=== PATIENT | female | born 1975 | race Caucasian/White ===

== ENCOUNTER 2024-07-16 16:13 | Inpatient (IN) | payer MEDICAID, SELFPAY ==
[2024-07-16 16:14] VITALS: BMI 30.9
--- NOTE | 2024-07-16 16:17 | EKG_ITS ---
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
[2024-07-16 16:32] VITALS: BP 151/89; PULSE 65; RESP 20; TEMP 36.9; O2SAT 98
--- NOTE | 2024-07-16 16:44 | PD.EDRME ---
Rapid Medical Screening Exam RME Arrival date/time: 07/16/24 16:13 48-year-old female presents emergency department complains of chest pain ongoing since Monday Chief Complaint: Chest Pain Time Seen by Provider: 07/16/24 16:26 Vital signs: Vital Signs Temperature 98.5 F 07/16/24 16:32 Pulse Rate 65 07/16/24 16:32 Respiratory Rate 20 07/16/24 16:32 Blood Pressure 151/89 H 07/16/24 16:32 Pulse Oximetry (%) 98 07/16/24 16:32 Oxygen Delivery Method Room Air 07/16/24 16:32
--- NOTE | 2024-07-16 16:45 | XR_ITS ---
Examination: PA lateral chest 2 views Technique: Upright AP lateral chest 2 views Exam date and time: July 16, 2024 1701 hrs. Indications: Chest pain today. Findings: Normal heart size No pneumonia or pulmonary edema The osseous structures are intact Impression: No active disease
[2024-07-16 17:00] LABS: Basophils # (Auto) 0.1 Thou/mm3 (0.0-0.2); Basophils % (Auto) 1 % (0-2.5); Eosinophils # (Auto) 0.2 Thou/mm3 (0.0-0.5); Eosinophils % (Auto) 2 % (0-10); Hematocrit 39.9 % (36.0-46.0); Hemoglobin 13.6 g/dL (12.0-16.0); Immature Granulocytes % (Auto) 0 % (0-0); Immature Granulocytes Auto 0.04 Thou/mm3 (0.00-0.00); Lymphocytes # (Auto) 2.2 Thou/mm3 (1.0-4.8); Lymphocytes % (Auto) 24 % (10-50); Mean Corpuscular HGB Conc 34.1 g/dl (31.0-37.0); Mean Corpuscular Hemoglobin 30.2 pg (25.0-35.0); Mean Corpuscular Volume 89 fL (80-100); Monocytes # (Auto) 0.8 Thou/mm3 (0.0-0.8); Monocytes % (Auto) 9 % (0-12); Neutrophils % (Auto) 65 % (37-80); Nucleated Red Blood Cell % 0 /100 WBC (0); Platelet Count 354 Thou/mm3 (140-440); RDW Standard Deviation 39.8 fL (36.4-46.3); White Blood Count 9.3 Thou/mm3 (3.6-11.0)
[2024-07-16 17:21] LABS: B-Type Natriuretic Peptide 31 pg/mL (0-100)
[2024-07-16 17:34] LABS: Alanine Aminotransferase 13 U/L (10-49); Albumin, Serum 4.7 gm/dL (3.5-5.0); Albumin/Globulin Ratio 1.4 (1.2-2.2); Alkaline Phosphatase 65 U/L (46-116); Anion Gap 7 (7-16); Aspartate Amino Transferase 14 U/L (0-34); BUN/Creatinine Ratio 13 Ratio (12-20); Bilirubin,Total 0.3 mg/dL (0.3-1.2); Blood Urea Nitrogen 10 mg/dL (9-23); Calcium 9.3 mg/dL (8.3-10.6); Calcium (Corrected) 9.3 mg/dL (8.5-10.1); Carbon Dioxide 23.9 mMol/L (20.0-31.0); Chloride 105 mMol/L (98-107); Creatinine (Component) 0.8 mg/dL (0.6-1.3); Estimated Creatinine Clearance 89.9 mL/min (>60); Globulin 3.3 gm/dL (2.3-3.5); Glucose 88 mg/dL (74-106); Lipase 51 U/L (12-53); Osmolality,Calculated 269 (275-295); Potassium 4.1 mMol/L (3.4-5.1); Sodium 136 mMol/L (136-145); Troponin I < 0.002 ng/mL (0.0-0.045); eGFR > 60 See Note
--- NOTE | 2024-07-16 20:22 | PD.EDCHEST ---
ED Chest Pain RME/HPI General Chief Complaint: Chest Pain Stated Complaint: MID CHEST PAIN RAD TO BACK Time Seen by Provider: 07/16/24 16:26 Source: patient Arrival date/time: 07/16/24 16:13 Mode of arrival: ambulatory Limitations: no limitations RME / HPI RME / HPI narrative: 07/16/24 16:13 48-year-old female presents emergency department complains of chest pain ongoing since Monday DR. TORIBIO MAIN ED EVALUATION: 48-year-old female with no significant past medical history coming in with radiating and squeezing chest pain to back. Since Monday. The pain is under her right breast area and it is squeezing in nature. Initially was intermittent and controlled with ibuprofen now pain has been constant for 48 hours and not improved with Motrin. No cough, runny nose, fever, history of cancer, no history of pulmonary embolism, no history recent travel, lower extremity swellings, and is not a smoker. Patient states that the pain is associated with food. Anything she eats makes the pain worse. No hypertension, history of hysterectomy, non-smoker. Related Data Allergies Allergy/AdvReac Type Severity Reaction Status Date / Time red dye AdvReac Unknown VOMITTING Verified 07/16/24 16:16 Review of Systems Review of Systems Systems Reviewed: All systems reviewed, normal except as documented Narrative Review of Systems: GEN: No fever, no chills, no weight loss EYES: No discharge, no visual changes, no pain HEENT: No ear pain, no congestion, no sore throat PULM: No shortness of breath, no cough, no congestion CV: + chest pain (under her right breast area see HPI), no dyspnea on exertion, no palpitations GI: No nausea, no vomiting, no diarrhea, no pain, no constipation : No frequency, no urgency and no dysuria MUSC/SKEL: No joint pain, + back pain SKIN: No rash PSYCH: No hallucinations, no depression HEME/LYMPH: No easy bleeding or bruising tendencies NEURO: No weakness, no headache Past Medical History Past Medical History CARDIAC: Negative Congestive Heart Failure RESPIRATORY: Negative Chronic Obstructive Pulmonary Disease (COPD) or Asthma GENITOURINARY: Negative Renal Disease ENDOCRINE: Negative Diabetes Mellitus Type 1 or Diabetes Mellitus Type 2 HEMATOLOGIC: Negative Sickle Cell Disease Social History SMOKING STATUS: Never smoker ED Exam Narrative Physical exam: Mild distress General Limitations: Present no limitations General appearance: Present alert and in no apparent distress Head Head exam: Present atraumatic Eye Eye exam: Present normal appearance; Absent scleral icterus ENT ENT exam: Present normal exam, normal oropharynx and mucous membranes dry Neck Neck exam: Present normal inspection, full ROM and trachea midline Chest Chest inspection: Present normal inspection and symmetric chest wall rise Respiratory Respiratory exam: Present normal lung sounds bilaterally; Absent wheezes Cardiovascular Cardiovascular exam: Present normal rhythm and normal heart sounds Abdominal Exam Abdominal exam: Present soft and normal bowel sounds Extremities Exam Extremities exam: Present normal inspection and full ROM Back Exam Back exam: Present normal inspection, full ROM and tenderness (Lipoma on her left upper back.); Absent CVA tenderness (R) or CVA tenderness (L) Neurological Exam Neurological exam: Present alert, oriented X3 and normal gait Psychiatric Psychiatric exam: Present normal affect and normal mood Skin Skin exam: Present warm, dry, intact and normal color Course Course Course Narrative: Reevaluation shows no Jenkins sign. Abdomen is soft. Patient has no fever here. Tolerated p.o. No evidence of acute cholecystitis. Quality Measures none Orders Category Date Time Status CT Screening NOW Care 07/16/24 20:39 Active EKG (ED ONLY) *Do not use* NOW Care 07/16/24 16:17 Completed IV [Insert IV] STAT Care 07/16/24 20:40 Active MRI Screening NOW Care 07/17/24 01:15 Completed MRI Screening NOW Care 07/17/24 01:[address] angio chest Stat Exams 07/16/24 20:39 Completed EKG (ED Only) Stat Exams 07/16/24 16:17 Draft MR MRCP Stat Exams 07/17/24 Ordered US gall bladder Stat Exams 07/16/24 20:40 Completed XR chest 2V Stat Exams 07/16/24 16:45 Completed BNP [B-Type Natriuretic Peptide] Stat Lab 07/16/24 16:52 Completed CBC Stat Lab 07/16/24 16:52 Completed Comprehensive Metabolic Panel Stat Lab 07/16/24 16:52 Completed HCG,Qualitative Serum Stat Lab 07/16/24 16:52 Completed Lipase Stat Lab 07/16/24 16:52 Completed Troponin I Stat Lab 07/16/24 16:52 Completed Ketorolac Inj [Toradol Inj] Med 07/16/24 20:40 Discontinued 30 mg IVP X1 ONE Ketorolac Inj [Toradol Inj] Med 07/17/24 01:15 Discontinued 30 mg IVP X1 ONE Morphine Inj Med 07/16/24 20:40 Discontinued 4 mg IVP X1 ONE Morphine Inj Med 07/17/24 01:15 Discontinued 4 mg IVP X1 ONE Ondansetron Inj [Zofran Inj] Med 07/16/24 20:40 Discontinued 4 mg IV X1 ONE Sodium Chloride 0.9% 1000 ml [Ns] 1,000 ml Med 07/16/24 20:40 Discontinued IV 999 mls/hr Vital Signs Vital signs: Vital Signs Temperature 98.5 F 07/16/24 16:32 Pulse Rate 65 07/16/24 16:32 Respiratory Rate 20 07/16/24 16:32 Blood Pressure 151/89 H 07/16/24 16:32 Pulse Oximetry (%) 98 07/16/24 16:32 Oxygen Delivery Method Room Air 07/16/24 16:32 Procedures -ED EKG Interpretation #1: Date of EK07/16/24 Time of EK:30 Rate: 67 Additional EKG comment: No ST elevations or depressions. Left atrial enlargement. Incomplete right bundle branch block. QTc 419. Left bundle branch block. Chest Pain MDM Narrative MDM Narrative:: I, Vera Santana am scribing for and in the presence of Dr. Toribio. 0600 : Care signed out to [facility] provider. Past medical, surgical, social and family history reviewed. Vitals and home medications reviewed. Results and treatment plan discussed. They will assume the care of the patient at this time and will follow the patient, pending MRCP. Patient data External records reviewed:: None (no previous visits) Clinical information provided by:: patient Social determinants that could affect healthcare access:: none Patient has the following chronic illnesses:: Denies any PMHx, surgeries, daily medications, or known allergies. No hypertension, history of hysterectomy, non-smoker. How is presenting disease/condition affected by chronic disease/condition?: no chronic disease Evaluation data The following diagnostics were reviewed and interpreted by me:: lab results, radiology exam(s) and EKG tracing(s) Lab and/or radiology exams considered but not ordered:: none Interpretation Summary: Procedure(s): XR chest 2V Accession Number(s): [id number] cc: Tom (PAPER PRODUCTS MACHINE OPERATOR),Dylon HAMILTON; Rigoberto Reyez MD; NO PRIMARY/FAMILY,PHYSICIAN~ Examination: PA lateral chest 2 views Technique: Upright AP lateral chest 2 views Exam date and time: July 16, 2024 1701 hrs. Indications: Chest pain today. Findings: Normal heart size No pneumonia or pulmonary edema The osseous structures are intact Impression: No active disease Dictated By: Rigoberto Reyez MD Procedure(s): US gall bladder Accession Number(s): [id number] cc: Rigoberto Reyez MD; NO PRIMARY/FAMILY,PHYSICIAN; Lauren Toribio MD~ Examination: Abdomen sonogram, Limited Date and time of exam: July 16, 2024 2124 hrs. Indications: Onset right upper abdominal pain beginning 6 days ago Technique: Real-time belcher scale transabdominal sonographic images of the upper abdomen obtained. Findings: Multiple small gallstones Gallbladder wall 0.3 cm no edema Common bile duct 0.4 cm Pancreatic head 2.9 cm Liver 13 cm fatty liver Normal hepatopedal portal venous flow Patent IVC Impression: Cholelithiasis, negative for cholecystitis Dictated By: Rigoberto Reyez MD Medications / Prescriptions Medications or Prescriptions considered but not ordered:: none Medication administrations:: Medication Administration History Discontinued Medications Sodium Chloride (Ns) 1,000 mls @ 999 mls/hr IV .Q1H1M ONE Stop: 07/16/24 21:40 Last Infusion: 07/16/24 22:15 Dose: Infused Documented By: Admin: 07/16/24 21:19 Dose: 999 mls/hr Documented By: TC Ketorolac Tromethamine (Ketorolac Inj 30 Mg/Ml Vial) 30 mg IVP X1 ONE Stop: 07/16/24 20:41 Last Admin: 07/16/24 21:13 Dose: 30 mg Documented By: TC Ketorolac Tromethamine (Ketorolac Inj 30 Mg/Ml Vial) 30 mg IVP X1 ONE Stop: 07/17/24 01:16 Last Admin: 07/17/24 01:21 Dose: Not Given Documented By: TC Non-Admin Reason: Discontinued Morphine Sulfate (Morphine Sulf Inj 10 Mg/Ml Vial) 4 mg IVP X1 ONE Stop: 07/16/24 20:41 Last Admin: 07/16/24 21:14 Dose: 4 mg Documented By: TC Morphine Sulfate (Morphine Sulf Inj 10 Mg/Ml Vial) 4 mg IVP X1 ONE Stop: 07/17/24 01:16 Last Admin: 07/17/24 01:23 Dose: 4 mg Documented By: TC Ondansetron HCl (Ondansetron Inj 2 Mg/Ml Inj 2 Ml) 4 mg IV X1 ONE; Protocol Stop: 07/16/24 20:41 Last Admin: 07/16/24 21:13 Dose: 4 mg Documented By: TC see above Consultations Consultation(s) initiated? (list below): No Diagnosis Chest Pain Differential Diagnosis: other (pulmonary embolism, gallbladder disease, common bile duct stone, pulmonary embolism, coronary disease, will send second troponin) Most likely diagnosis given after review of the tests above:: Cholethiasis Admission Indicated Admission indicated?: not indicated Explain why admission is indicated or not indicated:: Sign out pending MRCP Admission Request Was there a request for admission?: No Disposition Plan Disposition Plan: other (specify) (sign out) Discharge Plan Plan Patient Disposition: HOME (Self Care) Patient condition on transfer: Stable Prescriptions/Referrals Referrals: No Primary/Family,Physician [Primary Care Provider] - In 1 week Winsome Newby MD [Physician] - In 1 week (Get referral for gallstones.) Problem List Clinical Impression: Cholelithiasis Patient/Caregiver Discharge Instructions Education Materials: What Are Gallstones, Treating Gallstones Additional Instructions: Stop eating greasy and fatty foods especially over the next few holidays will you will end up back in the emergency department with an infection of your gallbladder. Right now you only have gallstones. You can follow-up with your primary care to get a referral to the surgeons office to see if they want to take your gallbladder out. That number has been given to you above. If you do not have a primary care physician you can follow-up at the [facility] located at [facility] [address], [place] the phone number is [phone]. Print Language: Grenadian Stand Alone Forms: Jesscia Award Info., Patient Portal Info Letter
--- NOTE | 2024-07-16 20:39 | XR_ITS ---
Examination: CTA chest with intravenous contrast 2-D reconstructions 3-D reconstructions, vascular Date and time of exam: July 16, 2024 11:35 PM Indications: Chest pain beginning 5 days ago CTDI: vol (mGy) 16.6 DLP: (mGycm) 337 Technique: Multiple axial sections of the thorax have been obtained. 3 mm slice thickness, from below the hemidiaphragms to above the apices of the lungs. Mediastinal and lung density settings have been obtained. 2-D sagittal and coronal reconstructions. 3-D angiographic renderings, 3-D volume renderings, 3D post processing, vascular maximum intensity projections obtained. Contrast administered is 100 cc Isovue-370 intravenous. Low dose protocols were performed. One or more of the following dose reduction techniques were used; automated exposure control, adjustment of the mA and/or KV according to patient size, use of iterative reconstruction technique. Findings: No thoracic aortic aneurysm dilatation or dissection Pulmonary artery segments are not enlarged No paratracheal tracheobronchial or bronchopulmonary adenopathy No lobar pneumonia or pulmonary edema or pleural disease 6 mm medial right lobe liver cyst No biliary tract dilatation Gallstones No dilated pancreatic duct No adrenal mass Impression: Negative for pulmonary artery emboli No pneumonia, pulmonary edema or pleural disease Cholelithiasis, negative for cholecystitis
--- NOTE | 2024-07-16 20:40 | XR_ITS ---
Examination: Abdomen sonogram, Limited Date and time of exam: July 16, 2024 2124 hrs. Indications: Onset right upper abdominal pain beginning 6 days ago Technique: Real-time belcher scale transabdominal sonographic images of the upper abdomen obtained. Findings: Multiple small gallstones Gallbladder wall 0.3 cm no edema Common bile duct 0.4 cm Pancreatic head 2.9 cm Liver 13 cm fatty liver Normal hepatopedal portal venous flow Patent IVC Impression: Cholelithiasis, negative for cholecystitis
[2024-07-16] MEDS: KETOROLAC INJ 30 MG/ML VIAL IVP (21:13)
[2024-07-16] MEDS: ONDANSETRON INJ 2 MG/ML INJ 2 ML 4 MG IV (21:13)
[2024-07-16] MEDS: MORPHINE SULF INJ 10 MG/ML VIAL 4 MG IVP (21:14)
[2024-07-16] MEDS: SODIUM CHLORIDE 0.9% 1000 ML 1,000 ML 999 ML IV (21:19)
[2024-07-16 21:23] VITALS: BP 161/86; PULSE 74; RESP 17; TEMP 36.6; O2SAT 99
[2024-07-16 23:02] LABS: HCG,Qualitative Serum Negative
[2024-07-17] VITALS (18 sets, daily range): BP systolic 91–136; BP diastolic 48–88; PULSE 51–90; RESP 12–20; TEMP 36.6–37.2; O2SAT 95–99
--- NOTE | 2024-07-17 | XR_ITS ---
MRI abdomen, without contrast. MRCP Date and time of exam: July 17, 2024 0840 hours INDICATIONS: Constant right upper abdominal pain beginning last week Technique: Multiple axial and coronal images of the abdomen have been obtained with the Siemens 1.5T MRI scanner. Images obtained included T1 weighted transverse images, T2-weighted transverse images, T2-weighted transverse images fat-suppressed, T2 weighted haste fat suppressed transverse images, T1 weighted images, in and out of phase images, T2-weighted coronal images, breath hold, T2 weighted haze coronal images as well as T2 weighted coronal thick slab images, MRCP. Findings: No focal liver lesions Multiple gallstones Gallbladder wall is thickened at the fundus 11 mm 2 mm stone in the common hepatic duct coronal image 13 No pancreatic edema No splenomegaly No ascites No hydronephrosis IMPRESSION: Acute calculus cholecystitis 2 mm stone in the common hepatic duct, coronal image 13, consider ERCP follow-up
[2024-07-17] MEDS: MORPHINE SULF INJ 10 MG/ML VIAL 4 MG IVP ×2 (01:23→18:24)
[2024-07-17] MEDS: LORazepam 2 MG/ML VIAL IVP (04:53)
--- NOTE | 2024-07-17 07:14 | PD.EDADDENDU ---
Emergency Room Addendum <Megha Giron - Last Filed: 07/17/24 16:29> Addendum Narrative: 0600: Care assumed from Dr. Toribio, the previous shift emergency physician. Past medical, surgical, social and family history reviewed. Vitals and home medications reviewed. I will assume the care of the patient at this time, pending MRCP and final disposition. Please refer to the emergency department record for history and examination from initial visit.? Nursing notes reviewed by me. Vital signs reviewed by me. [place] medical records reviewed by me. 0702: on reassessment patient has epigastric and right upper quadrant tenderness. Reports 5-7 days of unrelenting epigastric pain. Patient received 2mg of Ativan at 04:53 am. 1205: I discussed todays MRCP results with both the patient and at bedside. Discussed the plan to transfer the patient which they both understand. Patient is requesting pain medication. Patient was having more pain was given some Dilaudid appears to be comfortable. 1250: I spoke with transfer nurse at [facility]. Discussed patients PMHx, HPI, ED course, exam findings, labs, and radiology results. They attempted to reach GI specialist Dr. Gonzales. However did not answer. State they will present the case to GI. 1256: I spoke with transfer nurse at [facility]. Discussed patients PMHx, HPI, ED course, exam findings, labs, and radiology results. State they will present case to their GI team. [facility] called back about the transfer and took some information are still waiting for callback from them at 1359 hrs. Same thing for [facility] as mentioned above still no callback at 1359 hrs. 1420: [facility] has declined patient for transfer. 1615: I spoke with GI Dr. Abdi. Discussed patients PMHx, HPI, ED course, exam findings, labs, and radiology results. States he will consult with Dr. Strauss. 1622: Dr. Abdi reports Dr. Strauss is unavailable however Dr. Abdi agrees to consult. 1625: I spoke with surgeon Dr. Colunga. Discussed patients PMHx, HPI, ED course, exam findings, labs, and radiology results. He agrees to consult. RADIOLOGY Ordering Physician: Lauren Toribio MD Date of Service: 07/17/24 Procedure(s): MR MRCP Accession Number(s): [id number] cc: Rigoberto Reyez MD; NO PRIMARY/FAMILY,PHYSICIAN; Lauren Toribio MD~ MRI abdomen, without contrast. MRCP Date and time of exam: July 17, 2024 0840 hours INDICATIONS: Constant right upper abdominal pain beginning last week Technique: Multiple axial and coronal images of the abdomen have been obtained with the Siemens 1.5T MRI scanner. Images obtained included T1 weighted transverse images, T2-weighted transverse images, T2-weighted transverse images fat-suppressed, T2 weighted haste fat suppressed transverse images, T1 weighted images, in and out of phase images, T2-weighted coronal images, breath hold, T2 weighted haze coronal images as well as T2 weighted coronal thick slab images, MRCP. Findings: No focal liver lesions Multiple gallstones Gallbladder wall is thickened at the fundus 11 mm 2 mm stone in the common hepatic duct coronal image 13 No pancreatic edema No splenomegaly No ascites No hydronephrosis IMPRESSION: Acute calculus cholecystitis 2 mm stone in the common hepatic duct, coronal image 13, consider ERCP follow-up Dictated By: Rigoberto Reyez MD Signed By: <Electronically signed by Rigoberto Reyez MD in OV> 07/17/24 1006 <Cesar Batista MD - Last Filed: 07/17/24 16:31> Addendum Narrative: 0600: Care assumed from Dr. Toribio, the previous shift emergency physician. Past medical, surgical, social and family history reviewed. Vitals and home medications reviewed. I will assume the care of the patient at this time, pending MRCP and final disposition. Please refer to the emergency department record for history and examination from initial visit.? Nursing notes reviewed by me. Vital signs reviewed by me. [facility] medical records reviewed by me. 0702: on reassessment patient has epigastric and right upper quadrant tenderness. Reports 5-7 days of unrelenting epigastric pain. Patient received 2mg of Ativan at 04:53 am. 1205: I discussed todays MRCP results with both the patient and at bedside. Discussed the plan to transfer the patient which they both understand. Patient is requesting pain medication. Patient was having more pain was given some Dilaudid appears to be comfortable. 1250: I spoke with transfer nurse at [facility]. Discussed patients PMHx, HPI, ED course, exam findings, labs, and radiology results. They attempted to reach GI specialist Dr. Gonzales. However did not answer. State they will present the case to GI. 1256: I spoke with transfer nurse at [facility]. Discussed patients PMHx, HPI, ED course, exam findings, labs, and radiology results. State they will present case to their GI team. [facility] called back about the transfer and took some information are still waiting for callback from them at 1359 hrs. Same thing for [facility] as mentioned above still no callback at 1359 hrs. 1420: [facility] has declined patient for transfer. 1615: I spoke with GI Dr. Abdi. Discussed patients PMHx, HPI, ED course, exam findings, labs, and radiology results. States he will consult with Dr. Strauss. 1622: Dr. Abdi reports Dr. Strauss is unavailable however Dr. Abdi agrees to consult. 1625: I spoke with surgeon Dr. Colunga. Discussed patients PMHx, HPI, ED course, exam findings, labs, and radiology results. He agrees to consult. jmk> as mentioned above patient presents with intractable right upper quadrant pain with gallstones and MRCP that reveals acute Hina cystitis and a common hepatic stone which is 2 mm and evidently the previous 2 control equipment electrician who did not speak to me on the phone we attempted to transfer did not feel this patient need to be transferred just be admitted for gallbladder removal. So we contacted Dr. Colunga our surgeon on-call discussed the case at great length and he agreed to take the patient and admission understanding there is a 2 mm common hepatic duct stone. Dr. Colunga said he could admit this patient out right since there is no other medical problems noted at this time. Note we spent over an hour time with transfers and calls and discussions to get this patient transferred and unfortunately could not speak to any of the control equipment electrician that the other locations and we have nobody to do ERCP here as our 1 and only control equipment electrician that does ERCPs is on vacation. Fortunately Dr. Abdi was available to help us and will be available in consultation if needed. RADIOLOGY Ordering Physician: Lauren Toribio MD Date of Service: 07/17/24 Procedure(s): MR MRCP Accession Number(s): [id number] cc: Rigoberto Reyez MD; NO PRIMARY/FAMILY,PHYSICIAN; Lauren Toribio MD~ MRI abdomen, without contrast. MRCP Date and time of exam: July 17, 2024 0840 hours INDICATIONS: Constant right upper abdominal pain beginning last week Technique: Multiple axial and coronal images of the abdomen have been obtained with the Siemens 1.5T MRI scanner. Images obtained included T1 weighted transverse images, T2-weighted transverse images, T2-weighted transverse images fat-suppressed, T2 weighted haste fat suppressed transverse images, T1 weighted images, in and out of phase images, T2-weighted coronal images, breath hold, T2 weighted haze coronal images as well as T2 weighted coronal thick slab images, MRCP. Findings: No focal liver lesions Multiple gallstones Gallbladder wall is thickened at the fundus 11 mm 2 mm stone in the common hepatic duct coronal image 13 No pancreatic edema No splenomegaly No ascites No hydronephrosis
--- NOTE | 2024-07-17 07:30 | PC.NURSE ---
report given from third shift lieutenant rn. pt came in due to mid upper abd pain and mid chest pain rad to her back with sob and increased with breathing. pt was given ativan ivp and pain medication throughout the night. pt is sleeping and resting in position of comfort. pt waiting for MRI this am and screening done. vss.
[2024-07-17] MEDS: ONDANSETRON INJ 2 MG/ML INJ 2 ML 4 MG IV ×2 (09:46→22:07)
--- NOTE | 2024-07-17 11:50 | PC.CM ---
Addendum entered by Roman Zapata RN 07/17/24 16:29: 1629 received call from ED charge nurse that pt is being admitted to the hospital and transfer is canceled. Addendum entered by Roman Zapata RN 07/17/24 15:15: 1451 Received call from Nga at [facility], she stated her GI reviewed the clinicals and pt doesn't need ERCP for 2mm stone, it can pass. I explained pt is having intractable pain. But she also mentioned her GI also stated if the ER physician is insisting for transfer, pt can have EUS, but he doesn't do that. Addendum entered by Roman Zapata RN 07/17/24 14:30: 1430 images pushed over to [facility] through [facility]. Addendum entered by Roman Zapata RN 07/17/24 14:27: 1422 clinicals sent to [facility]. Addendum entered by Roman Zapata RN 07/17/24 14:26: [address] Batista the outcome with [facility]. Order to continue with transfer request. Addendum entered by Roman Zapata RN 07/17/24 14:19: 1401 received call from Yuki at [facility]. She stated she spoke to her GI and he stated pt doesn't need ERCP. The gall bladder needs to be taken out. Therefore, transfer request is canceled. Addendum entered by Roman Zapata RN 07/17/24 12:58: 1256 called [facility], spoke to Yuki and initiated the transfer. Yuki wants to speak to Dr. Batista. Conference call connected. Addendum entered by Roman Zapata RN 07/17/24 12:52: 1249 received call from [facility], spoke to Nga and connected her with Dr. Batista. After Nga spoke to Dr. Batista. She wants to connect her GI Dr. Gonzales with Dr. Batista. But he is busy with procedure and not available to speak at this moment. Addendum entered by Roman Zapata RN 07/17/24 12:45: 1239 Dr. Batista is available. I called [facility] to connect him with Nga at . Left VM. 1222 received call from Nga at [facility] want to speak with Dr. Batista. Checked with ED, Dr. Batista is not available at this time. Informed Nga that I will call back once Dr. Batista is available. Addendum entered by Roman Zapata RN 07/17/24 12:01: 1200 called [facility], spoke to Nga and initiated the transfer. Original Note: 1150 clinicals sent to [facility] and [place] . [address] Batista that pt needs to be transferred for Choledocholithiasis needs GI services/ERCP.
[2024-07-17] MEDS: HYDROmorphone INJ 2 MG/ML VIAL 1 MG IVP (12:17)
--- NOTE | 2024-07-17 12:20 | PC.NURSE ---
pt c/o on cont upper abd pain doctor vidal aware and verbal order placed for pain medication per doctor. family at bedside. vss.
--- NOTE | 2024-07-17 17:53 | PD.SURHP ---
HPI Date of Admission 07/17/2024 Chief Complaint Chief Complaint: Patient is admitted with the complaints of acute cholecystitis with cholelithiasis HPI History of present illness revealed that the patient was in her usual health until 5 days ago when she started having pain in the epigastric region radiating to the back as well as in the right side. She had no more nausea or vomiting. The pain in creased after eating. She is avoiding greasy food. She has never had a diagnosis of gallstones. She had no diarrhea. She was eating small amounts and having regular bowel movements. She denies any fever or chills or jaundice. Patient's past medical history revealed that he has had laparoscopic ablation for endometriosis and ventral hernia repair in [place] Past Medical History Past Medical History CARDIAC: Negative Congestive Heart Failure RESPIRATORY: Negative Respiratory Disorders, Chronic Obstructive Pulmonary Disease (COPD) or Asthma GENITOURINARY: Negative Renal Disease ENDOCRINE: Negative Diabetes Mellitus Type 1 or Diabetes Mellitus Type 2 HEMATOLOGIC: Negative Sickle Cell Disease Social History SMOKING STATUS: Never smoker Meds Home Medications and Allergies Home Medications ?Medication ?Instructions ?Recorded ?Confirmed ?Type No Known Home Medications 07/17/24 07/17/24 History Allergies Allergy/AdvReac Type Severity Reaction Status Date / Time red dye AdvReac Unknown VOMITTING Verified 07/16/24 16:16 Exam Vital Signs Temp Pulse Resp BP Pulse Ox O2 Del Method 98.5 F 61 16 101/61 97 Room Air 07/17/24 16:18 07/17/24 16:18 07/17/24 16:18 07/17/24 16:18 07/17/24 16:18 07/17/24 16:18 Narrative Exam Physical examination revealed a slightly obese white female who is 5 feet 4 inches tall weighing 180 pounds with BMI of 30.9 Constitutional Constitutional: mild distress Routine Abdominal Exam Comments: Abdomen showed a definite tenderness of the right upper quadrant with a positive Jenkins sign. There is a surgical scar in the lower abdomen from previous section. There are some laparoscopic scars from previous surgery Routine Rectal Exam Comments: Deferred Routine Exam Comments: Deferred Routine Extremities Exam Comments: Within normal limits Results Results: Laboratory Laboratory Narrative: Laboratory results are within normal limits including liver enzymes Results: Imaging Imaging narrative: Ultrasound of the abdomen showed gallstones. MRCP was done it showed a 2 mm stone in the hepatic duct Additional studies: Chest x-ray was normal CTA of the chest also was normal for any pulmonary embolism Assessment & Plan Additional Assessment Additional comments: Impression: Acute cholecystitis with cholelithiasis Possible common hepatic duct stone Plan Plan: I advised the patient that she would undergo laparoscopic cholecystectomy because that is what is causing her pain the procedure was explained to her in detail including potential complications like bile duct injury requiring further surgery by opening the third at another hospital. Other complications like bleeding and injury to the bowel etc. were discussed with the patient. She was told about the possible stone in the hepatic duct and made a jacquard fixer have advised observation and no intervention at this time. I told the patient that she may end up having pain after the gallbladder surgery may require follow-up with jacquard fixer for removal of the stone. The stone may also passed by itself and may not cause any problem. Patient understands everything and is agreeable to proceed with surgery. Quality Measures Quality Measures none
[2024-07-17] MEDS: SODIUM CHLORIDE 0.9% 1000 ML 1,000 ML 100 ML IV ×2 (18:24→22:45)
[2024-07-17] MEDS: PIPER/TAZO 3.375 GM 50 ML IV ×2 (18:24→22:49)
--- NOTE | 2024-07-17 19:26 | PC.NURSE ---
Called pharmacy regarding timing of zosyn, they stated ok to keep with scheduled doses as dose that was given at 1826 is loading dose and next can be given 4 hours after and then q8h every dose thereafter.
[2024-07-18] VITALS (14 sets, daily range): BP systolic 100–145; BP diastolic 42–75; PULSE 65–85; RESP 16–98; TEMP 36.2–36.6; O2SAT 95–100
[2024-07-18] MEDS: ONDANSETRON INJ 2 MG/ML INJ 2 ML 4 MG IV ×2 (04:05→11:59)
--- NOTE | 2024-07-18 05:35 | PC.NURSE ---
Patient requesting not to administer 0600 dose of zosyn. Patient says it makes her feel yucky. RN will notify hospitalists.
--- NOTE | 2024-07-18 05:45 | PC.NURSE ---
Addendum entered by Alvin Roberson RN 07/18/24 05:55: Dr. Colunga returned call saying it is okay to skip the 0600 dose of zosyn that the patient refused. Original Note: Patient refused 0600 dose of zosyn. Patient states that it makes her feel yucky. RN attempted to call Dr. Colunga, but no answer.
--- NOTE | 2024-07-18 11:39 | SUR.PHASEI ---
pt received to [facility]. vss. breathing even and unlabored. dressing x4 gauze with medipore tape to abdomen. report from dr daniels and nurse binu.
--- NOTE | 2024-07-18 11:41 | PD.SUROPNT ---
Date of Procedure 07/18/24 Pre Op Diagnosis Acute cholecystitis with cholelithiasis Post Op Diagnosis Same Procedure Laparoscopic cholecystectomy Findings Patient was found to have a thickened distended gallbladder which upon aspiration yielded colorless bile suggesting cystic duct obstruction for some time Procedure Description After endotracheal anesthesia was given the patient was placed in supine position and the abdomen was prepped with chloroprep solution and draped in a sterile manner. After time out was performed I injected a few cc of of half percent Marcaine with epinephrine below the umbilicus and I made an incision for about 3 cm in length. The fascia was cleaned and Veress needle was inserted to create a pneumoperitoneum up to 15 mmHg. Then introduced a 12 mm trocar and a 10 mm camera through the fascia and I inspected the intra-abdominal organs as well as the gallbladder and the liver. Another 5 mm trocar was inserted in the epigastric region under direct vision after injecting some local anesthesia. At this time the patient was kept in reverse Trendelenburg position with the left lateral tilt. The third 5 mm trocar was inserted over the mid axillary line under direct vision and a Abhijeet and Marlys grasper was used to hold the fundus of the gallbladder. The retraction was carried out by the phlebotomist lab assistant moving the fundus of the gallbladder towards the right shoulder of the patient to create enough traction. I placed a another 5 mm trocar in the midaxillary line just lateral to the rectus muscle under direct vision. I used a fenestrated grasper to retract the neck of the gallbladder laterally towards the patient's right hip. The Calot's triangle was exposed and I achieved the critical view of safety as follows: I dissected out the fatty tissue from the hepatocystic triangle and cleared this area. I also dissected inferior and posterior to the gallbladder to identify the cystic duct and the gallbladder wall. Then superiorly I dissected along the cystic plate up to lower one third third of the gallbladder to lift the gallbladder from the liver. At this time I confirmed that only 2 structures entering the gallbladder were cystic artery and the cystic duct. The common duct was seen distally but no dissection was carried out around the duct. I did not see any need for operative cholangiogram in this patient. The cystic duct was little larger and therefore I changed the epigastric trocar to a 12 mm port and then used extra-large clip through control the cystic duct satisfactorily. The cystic duct was clipped doubly and then divided and cystic artery was similarly dealt with. Then the gallbladder was removed from the liver bed using Harmonic scot to control the small blood vessels as the dissection proceeded. Then the gallbladder was from the liver bed completely and delivered through the umbilical port using an Endopouch. During the dissection the gallbladder leaked but it was well-controlled. The liver bed was coagulated with cautery to obtain satisfactory hemostasis. There was some oozing from the liver bed which was controlled with application of Surgicel. The trocars were pulled out from the abdominal cavity and the fascia at the umbilical incision was closed with interrupted 0 Ethibond. Subcutaneous tissues was closed with 3-0 chromic and injected a few cc of half percent Marcaine with epinephrine and the skin was closed with interrupted 4-0 Monocryl subcuticular stitches at all the trocar sites. Dressing was applied with 2 x 2 and Tegaderm. Patient tolerated the procedure well and returned to recovery room in stable condition. Anesthesia GETA Pathology / specimen Other (Gallbladder and the stones) IVF Infused 800 Estimated Blood Loss 50 Surgeon Winsome Newby MD Surgical Staff Operation Date: 07/18/24 09:15 Case Staff Anesthesiologist: Martin Walters RN First Assistant: Meaghan Brown
[2024-07-18] MEDS: fentaNYL CIT INJ 50 mCg/ML AMP 2ML 25 MCG IV (12:10)
--- NOTE | 2024-07-18 12:40 | SUR.PHASEI ---
pt asleep but responds to pain. breathing unlabored on room air. v/s stable. pt dressing to abd x4 cdi. report called to Shannon SUTTON. pt will be transferred to room at this time.
[2024-07-18] MEDS: ACETAMINOPHEN IVPB 1,000 MG/100 ML VIAL 250 MG IV ×3 (13:04→23:54)
[2024-07-18] MEDS: SODIUM CHLORIDE 0.9% 1000 ML 1,000 ML 100 ML IV ×2 (13:05→23:54)
[2024-07-18] MEDS: MORPHINE SULF INJ 10 MG/ML VIAL 4 MG IVP ×2 (15:29→21:17)
--- NOTE | 2024-07-18 15:33 | PC.NURSE ---
Patient got up and walked to the restroom. She urinated and we had to carefully walk her back into bed. Pain medications administered. Patient is resting will continue to monitor patient.
[2024-07-19] VITALS (9 sets, daily range): BP systolic 110–127; BP diastolic 67–75; PULSE 57–93; RESP 16–99; TEMP 36.2–36.9; O2SAT 95–97
[2024-07-19] MEDS: MORPHINE SULF INJ 10 MG/ML VIAL 4 MG IVP ×2 (05:29→09:55)
[2024-07-19 06:14] LABS: Basophils % (Auto) 0 % (0-2.5); Eosinophils % (Auto) 0 % (0-10); Hematocrit 36.6 % (36.0-46.0); Hemoglobin 12.7 g/dL (12.0-16.0); Immature Granulocytes % (Auto) 1 % (0-0); Immature Granulocytes Auto 0.09 Thou/mm3 (0.00-0.00); Lymphocytes # (Auto) 1.9 Thou/mm3 (1.0-4.8); Lymphocytes % (Auto) 13 % (10-50); Mean Corpuscular HGB Conc 34.7 g/dl (31.0-37.0); Mean Corpuscular Hemoglobin 30.8 pg (25.0-35.0); Mean Corpuscular Volume 89 fL (80-100); Monocytes # (Auto) 1.3 Thou/mm3 (0.0-0.8); Monocytes % (Auto) 9 % (0-12); Neutrophils # (Auto) 11.7 Thou/mm3 (1.8-7.7); Neutrophils % (Auto) 77 % (37-80); Nucleated Red Blood Cell % 0 /100 WBC (0); Platelet Count 322 Thou/mm3 (140-440); RDW Standard Deviation 38.4 fL (36.4-46.3); Red Blood Count 4.12 Miln/mm3 (4.00-5.20); White Blood Count 15.1 Thou/mm3 (3.6-11.0)
[2024-07-19 06:51] LABS: Alanine Aminotransferase 243 U/L (10-49); Albumin, Serum 4.2 gm/dL (3.5-5.0); Alkaline Phosphatase 117 U/L (46-116); Aspartate Amino Transferase 209 U/L (0-34); Bilirubin,Direct 0.2 mg/dL (0.0-0.3); Bilirubin,Total 0.5 mg/dL (0.3-1.2); Total Protein 6.9 gm/dL (5.7-8.2)
--- NOTE | 2024-07-19 08:27 | PD.SURPROG ---
Documentation for date of: 07/19/24 Subjective Subjective Brief History: History of present illness revealed that the patient was in her usual health until 5 days ago when she started having pain in the epigastric region radiating to the back as well as in the right side. She had no more nausea or vomiting. The pain in creased after eating. She is avoiding greasy food. She has never had a diagnosis of gallstones. She had no diarrhea. She was eating small amounts and having regular bowel movements. She denies any fever or chills or jaundice. Patient's past medical history revealed that he has had laparoscopic ablation for endometriosis and ventral hernia repair in [place] Narrative: Patient is complaining severe reflux this morning. She also had an episode of vomiting. She is describing pain as 10 out of 10. Exam Vital Signs Temp Pulse Resp BP Pulse Ox O2 Del Method O2 Flow Rate 98.5 F 62 17 127/74 96 Room Air 4 07/19/24 08:00 07/19/24 08:00 07/19/24 08:00 07/19/24 08:00 07/19/24 08:00 07/19/24 04:26 07/18/24 11:39 Her vital signs have been normal Routine Abdominal Exam Comments: Abdominal examination is benign Results Results: Laboratory Laboratory Narrative: Laboratory results show elevated liver enzymes with normal bilirubin.. She also has a leukocytosis Assessment & Plan Assessment Additional comments: Admission: Persistent postoperative pain Elevated liver enzymes probably due to surgery Acid reflux Plan Plan: We may have to keep the patient another day for have to get creative. Procedures Procedures Laparoscopic cholecystectomy
[2024-07-19] MEDS: PANTOPRAZOLE 40 MG TABLET PO (08:36)
[2024-07-19] MEDS: SODIUM CHLORIDE 0.9% 1000 ML 1,000 ML 100 ML IV (09:56)
[2024-07-19] MEDS: ONDANSETRON INJ 2 MG/ML INJ 2 ML 4 MG IV ×2 (10:01→14:37)
[2024-07-19] MEDS: KETOROLAC INJ 30 MG/ML VIAL IVP ×2 (14:38→20:44)
[2024-07-19] MEDS: ceFAZolin/D5W 2 GM IV 2 GM/100 ML BAG IV ×2 (14:39→21:25)
--- NOTE | 2024-07-19 15:57 | PD.SURPROG ---
Documentation for date of: 07/19/24 Subjective Subjective Brief History: History of present illness revealed that the patient was in her usual health until 5 days ago when she started having pain in the epigastric region radiating to the back as well as in the right side. She had no more nausea or vomiting. The pain in creased after eating. She is avoiding greasy food. She has never had a diagnosis of gallstones. She had no diarrhea. She was eating small amounts and having regular bowel movements. She denies any fever or chills or jaundice. Patient's past medical history revealed that he has had laparoscopic ablation for endometriosis and ventral hernia repair in [place] Narrative: The patient is still complaining of some abdominal pain and acid reflux. She is not able to even tolerate clear liquids adequately. She has not passed any flatus Exam Vital Signs Temp Pulse Resp BP Pulse Ox O2 Del Method O2 Flow Rate 97.5 F 68 16 121/71 97 Room Air 4 07/19/24 11:49 07/19/24 11:49 07/19/24 11:49 07/19/24 11:49 07/19/24 11:49 07/19/24 11:49 07/18/24 11:39 Vital signs are normal Assessment & Plan Assessment Additional comments: Impression: Possibly postoperative ileus following laparoscopic cholecystectomy for acute cholecystitis Plan Plan: Because the patient is not tolerating diet and has not gotten out of bed due to pain we shall keep her for additional day. She also has a leukocytosis which may be secondary to surgery but it makes sense to keep her on IV antibiotics for another day. Her liver enzymes are elevated given the history of possible stone in the hepatic duct we will repeat the liver enzymes tomorrow to see how it is trending down. For these reasons we will have to keep the patient for additional day Procedures Procedures Laparoscopic cholecystectomy
[2024-07-20] VITALS: BP 110/64; PULSE 67; RESP 18; TEMP 36.5; O2SAT 97
[2024-07-20] MEDS: KETOROLAC INJ 30 MG/ML VIAL IVP (02:51)
[2024-07-20 04:00] VITALS: BP 105/64; PULSE 62; RESP 17; TEMP 36.2; O2SAT 95
[2024-07-20 05:31] LABS: Basophils % (Auto) 0 % (0-2.5); Eosinophils # (Auto) 0.2 Thou/mm3 (0.0-0.5); Eosinophils % (Auto) 2 % (0-10); Hematocrit 33.7 % (36.0-46.0); Hemoglobin 11.8 g/dL (12.0-16.0); Immature Granulocytes % (Auto) 1 % (0-0); Immature Granulocytes Auto 0.05 Thou/mm3 (0.00-0.00); Lymphocytes # (Auto) 1.8 Thou/mm3 (1.0-4.8); Lymphocytes % (Auto) 20 % (10-50); Mean Corpuscular Hemoglobin 30.6 pg (25.0-35.0); Mean Corpuscular Volume 87 fL (80-100); Monocytes # (Auto) 1.1 Thou/mm3 (0.0-0.8); Monocytes % (Auto) 12 % (0-12); Neutrophils # (Auto) 6.2 Thou/mm3 (1.8-7.7); Neutrophils % (Auto) 66 % (37-80); Nucleated Red Blood Cell % 0 /100 WBC (0); Platelet Count 274 Thou/mm3 (140-440); RDW Standard Deviation 39.2 fL (36.4-46.3); Red Blood Count 3.86 Miln/mm3 (4.00-5.20); White Blood Count 9.4 Thou/mm3 (3.6-11.0)
[2024-07-20] MEDS: ceFAZolin/D5W 2 GM IV 2 GM/100 ML BAG IV (05:33)
[2024-07-20 06:08] LABS: Alanine Aminotransferase 125 U/L (10-49); Albumin, Serum 3.8 gm/dL (3.5-5.0); Alkaline Phosphatase 94 U/L (46-116); Aspartate Amino Transferase 67 U/L (0-34); Bilirubin,Direct < 0.1 mg/dL (0.0-0.3); Bilirubin,Total 0.2 mg/dL (0.3-1.2); Total Protein 6.5 gm/dL (5.7-8.2)
[2024-07-20 08:00] VITALS: BP 121/71; PULSE 59; RESP 17; TEMP 36.2; O2SAT 96
[2024-07-20] MEDS: PANTOPRAZOLE 40 MG TABLET PO (08:34)
[2024-07-20] MEDS: MORPHINE SULF INJ 10 MG/ML VIAL 4 MG IVP (08:34)
--- NOTE | 2024-07-20 11:13 | PD.SURPROG ---
Documentation for date of: 07/20/24 Subjective Subjective Brief History: History of present illness revealed that the patient was in her usual health until 5 days ago when she started having pain in the epigastric region radiating to the back as well as in the right side. She had no more nausea or vomiting. The pain in creased after eating. She is avoiding greasy food. She has never had a diagnosis of gallstones. She had no diarrhea. She was eating small amounts and having regular bowel movements. She denies any fever or chills or jaundice. Patient's past medical history revealed that he has had laparoscopic ablation for endometriosis and ventral hernia repair in [place] Narrative: The patient is feeling better today and is passing flatus. She is starting to have better pain relief even though she required morphine this morning. She is still complaining of right upper quadrant pain Exam Vital Signs Temp Pulse Resp BP Pulse Ox O2 Del Method O2 Flow Rate 97.2 F 59 L 17 121/71 96 Room Air 4 07/20/24 08:00 07/20/24 08:00 07/20/24 08:00 07/20/24 08:00 07/20/24 08:00 07/20/24 08:00 07/18/24 11:39 Vital signs are normal Routine Abdominal Exam Comments: Abdominal examination is negative Results Results: Laboratory Laboratory Narrative: Laboratory results show normal WBC and the liver enzymes that are coming towards normal Assessment & Plan Assessment Additional comments: Impression: Stable postoperative course following laparoscopic cholecystectomy Plan Plan: We shall discharge patient today and follow-up in my office in a week. Procedures Procedures Laparoscopic cholecystectomy
[2024-07-20 12:00] VITALS: BP 129/82; PULSE 68; RESP 18; TEMP 36; O2SAT 97
--- NOTE | 2024-07-22 12:18 | ESDS_ITS ---
RE: SHANTELLE BERRY : 1975 DATE OF ADMISSION: 07/17/2024 DATE OF DISCHARGE: 07/20/2024 12:54 DATE OF ADMISSION: 07/17/2024 DATE OF DISCHARGE: 07/20/2024 PROCEDURE DONE: 1. Ultrasound of the gallbladder. 2. MRCP. FINAL DIAGNOSES: Acute cholecystitis with cholelithiasis and possible hepatic duct stone. INDICATION FOR PROCEDURE: This patient was admitted with 1 week history of abdominal pain, right upper quadrant. Found to have acute cholecystitis. She also found to have small 2 mm stone in the hepatic duct but it was felt by the industrial maintenance tech that no ERCP is needed. The patient had continued right upper quadrant pain. She was started, therefore, on Zosyn and was admitted to the hospital. The following day, she underwent laparoscopic cholecystectomy for acute cholecystitis. This postoperative course was rather prolonged because of the acute inflammation and she required antibiotic therapy with Ancef 2 g every 8 hours. The patient's diet was gradually advanced and she was discharged on second postoperative day. At the time of discharge, she was given tramadol 50 mg, #20, one every 4 hours p.r.n. for pain and will be seen in my office in 1 week for followup. At the time of discharge, the patient was told that she might have pain if the 2 mm stone in the hepatic duct comes through the sphincter of Oddi, in which case she was advised to come to the emergency room. It is likely that the stone will pass by itself because the liver enzymes are returning to normal after the surgery. The patient had a transient elevation of the liver enzymes after surgery, but it was declining towards normal. DT: 11:24:35 TT: 17:10:00 Ref: [id number] - TID: [id number]
== END 2024-07-20 12:54 | disposition home or self-care (01) | DRG 263 ==
LOC: SERX 07-17 18:57 → SERHOLD 07-17 19:02 → S3NX 07-17 21:44
PROVIDERS: Emergency Medicine; Nurse Practitioner Primary Care; Admitting Provider Surgery; Emergency Provider Emergency Medicine; Visit Provider Surgery
PROC: 0FT44ZZ Resection of Gallbladder, Percutaneous Endoscopic Approach (ICD-10-PCS; CPT 47562; principal; 2024-07-18 09:00)
DX: K80.00 Calculus of gallbladder with acute cholecystitis without obstruction (principal); K21.9 Gastro-esophageal reflux disease without esophagitis
CPT/HCPCS: 36415; 71046; 71275; 76705; 80053; 80076; 83690; 83880; 84484; 84703; 85025; 87070; 87075; 87205; 93005; 96361; 96365; 96375; 96376; 99285; A4217; A4649; G0378; J0131; J0689; J0690; J1100; J1885; J2060; J2250; J2270; J2405; J2543; J2704; J3010; J3490; J7030; Q9967; S8037; 74181; A9270